=== PATIENT | female | born 2000 | race Hispanic/Latino ===

== ENCOUNTER 2021-04-06 09:32 | Emergency (ER) | payer OTHER ==
[~2021-04-06] VITALS: Ht 152.4 cm; Wt 63.5 kg
[2021-04-06 09:48] VITALS: BP 126/70
--- NOTE | 2021-04-06 09:52 | NUR ---
ARRIVAL PATIENT ARRIVED TO ED7 AMBULATORY, C/O DIZZINESS,NAUSEA,LOW BLOOD PRESSURE, AND SWEATING TODAY AFTER GETTING UP, WAS DX WITH COVID X1 WEEK AGO BY A TEST AT [facility], TODAY DECIDED TO COME TO THE ED FOR EVAL, DOCTOR WARD NOTIFIED OF PATIENT'S ARRIVAL.
--- NOTE | 2021-04-06 10:17 | ER.PDOC ---
General Chief Complaint: General Complaint Stated Complaint: LOW BP AND HIGH BS Time seen by MD: 10:00 Source: patient Exam Limitations: no limitations History of Present Illness Initial Comments This is a 20-year-old female who describes a near syncopal episode this morning. She states that she had recently awakened and got out of bed and was in a standing position when she started feeling nauseous and then broke out in a sweat. She felt very lightheaded and had dimming of her vision. At that time she sat down on the floor and her mother came and checked her blood pressure noting that it was low. She denies a past history of similar symptoms although she does have a history of vertigo. At the present time she feels basically recovered from the episode. There was no chest pain. She has not recently been ill. She has been taking doxycycline for approximately 1 month for presumed Lyme disease. She has irregular periods, the last one about 1 week ago. Allergies: Coded Allergies: No Known Allergies (Unverified , 11/26/17) Past Medical History Medical History: other (Vertigo, Lyme disease) Surgical History: no surgical history Family History Significant Family History: no pertinent family hx Social History Smoking: non-smoker Alcohol Use: none Drug Use: none Review of Systems Constitutional: denies chills, denies fever; other (Fatigue prompted the evaluation for Lyme disease 1 month ago) EENTM: denies eye pain, denies double vision Respiratory: denies cough, denies shortness of breath Cardiovascular: denies chest pain; other (Near syncope) Gastrointestinal: denies abdominal pain; nausea; denies vomiting Genitourinary: denies dysuria, denies hematuria Musculoskeletal: denies back pain, denies joint pain Skin: denies lesions, denies rash Psychiatric/Neurological: denies headache, denies seizure Physical Exam General Appearance: No Apparent Distress, WD/WN HEENT: PERRL/EOMI, Normal ENT Inspection, Pharynx Normal Neck: Non-Tender, Supple, Normal Inspection Cardiovascular/Respiratory: Regular Rate, Rhythm, No M/R/G, Normal Peripheral Pulses, No JVD, Normal Breath Sounds, No Respiratory Distress Gastrointestinal: Normal Bowel Sounds, Non Tender Extremities: Normal Range of Motion, Non-Tender, No Pedal Edema Psychiatric: Alert, Oriented x 3 Cranial Nerves: Normal Hearing, Normal Speech, PERRL Motor/Sensory: No Motor Deficit, No Sensory Deficit Skin: Normal Color, Warm/Dry Lymphatic: No Adenopathy Results/Orders Results/Orders Vital Signs Date Time Temp Pulse Resp B/P (MAP) Pulse Ox O2 Delivery O2 Flow Rate FiO2 04/06/21 09:48 100.3 103 18 126/70 (88) 97 Room Air 04/06/21 09:48 100.3 103 18 97 04/06/21 09:48 100.3 103 18 Progress Progress Prior to diagnostic tests being performed, the patient decided that she no longer wished to have an ER evaluation. She walked to the nursing station and informed the nurses that she was leaving. She states that she feels fine and fully recovered from the near syncopal episode. Her status is eloped from ER. ER DEPART Departure Time of Disposition: 10:15 Disposition: 07 LEFT AWOL/ELOPED Impression: Primary Impression: Near syncope Condition: Eloped Duration or Time Spent with Pa: 10 NOE HOPPER MD Apr 06, 2021 10:17
--- NOTE | 2021-04-06 10:23 | NUR ---
AMA PATIENT TO THE DESK, WANTS TO REFUSE LAB WORK AND EKG, "JUST WANTS TO LEAVE", AMA FORM PROVIDED AND PATIENT LEFT ED AMBULATORY OUT OF AMBULANCE BAY DOOR. NO DISTRESS NOTED.
== END 2021-04-06 10:23 | disposition left against medical advice (07) ==
LOC: ER 09:32
DX: R55 Syncope and collapse (principal); R42 Dizziness and giddiness
CPT/HCPCS: 99281